=== PATIENT | female | born 1955 | race Caucasian/White ===

== ENCOUNTER → 2018-05-14 14:09 | Outpatient (CLI) | payer MEDICARE, OTHER, SELFPAY ==
--- NOTE | 2018-05-14 | DI.MRI.S_ITS ---
PROCEDURE: MR SHOULDER LT WO CON INDICATIONS: LEFT SHOULDER PAIN TECHNIQUE: Noncontrast oblique coronal T2 fast spin echo with fat saturation, oblique sagittal T1 spin echo and T2 fast spin echo with fat saturation, axial T1 spin echo and T2 fast spin echo with fat saturation through the shoulder. COMPARISON: None. FINDINGS: Image quality: Excellent. Rotator cuff: There is mild supraspinatus tendinopathy and bursal surface fraying. There is also low grade articular surface fraying image 10 series 5. No high-grade or full-thickness tear. Teres minor, infraspinatus, and subscapularis tendons appear intact throughout. No rotator cuff muscle atrophy on sagittal images. Bones and bursae: No bone marrow contusions or fractures. Moderate acromioclavicular joint degeneration. The acromion demonstrates conventional anatomy, without an os acromiale. Mild lateral downsloping appearance the acromion. There is trace subacromial-subdeltoid bursal fluid. Capsule and soft tissues: In the absence of intra-articular contrast, the labrum and glenohumeral ligaments appear intact. The long head of the biceps tendon demonstrates normal location and morphology. The rotator interval appears normal, without fibrosis. The coracohumeral ligament is normal in thickness. IMPRESSION: Mild supraspinatus tendinopathy with low-grade bursal and articular surface fraying however no high-grade or full-thickness tear. Lateral downsloping appearance of the acromion. Mild subacromial/subdeltoid bursitis. Dictated by: Dano Pennington M.D. on 05/14/2018 at 15:59 Approved by: Dano Pennington M.D. on 05/14/2018 at 16:10
== END ==
PROVIDERS: Family Provider Physician Assistant Medical; PCP Physician Assistant Medical; Visit Provider Physician Assistant Medical
DX: M25.512 Pain in left shoulder (principal); M75.52 Bursitis of left shoulder
CPT/HCPCS: 73221

== ENCOUNTER 2018-06-29 13:00 | Emergency (ER) | payer MEDICARE, OTHER, SELFPAY ==
--- NOTE | 2018-06-29 13:08 | ED.FALL ---
HPI - Fall <Nory Torre PA-C - Last Filed: 06/29/18 21:56> General Chief Complaint: Extremity Injury, Lower Stated Complaint: fall, left lwr leg/ankle injury Time Seen by Provider: 06/29/18 13:08 Source: patient and family Mode of arrival: ambulatory Limitations: no limitations History of Present Illness HPI Narrative: This 63-year-old female was pulling weeds when she slipped and fell backwards onto a stump. She states that she thinks her left leg twisted underneath her, took the initial impact with that, but also fell onto her upper back which she hit on the stump. She denies head contusion but her states that he did see her hit her head. She states that she knew what was happening, no LOC. She has not had headache, vision change, nausea or vomiting. She states that her neck is a little bit sore and feels sore where she scraped her upper back. She denies any weakness in the extremities. Denies any bowel or bladder changes. She states that her left foot feels a little bit numb or tingly but can't quite tell where. She denies any other paresthesia. She states that her main pain is in the left ankle. When she tried to walk on it she her a grinding, crunching sensation and felt a ?gush?, so has not put weight on it. 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 States she has some decreased ROM in her neck at baseline as well. Her only other complaint on systems review is dry mouth. Related Data Home Medications Medication Instructions Recorded Confirmed Liverite 1 tab PO DAILY 06/29/18 06/29/18 aspirin 81 mg PO DAILY 06/29/18 06/29/18 clobetasol 1 applic TOPICAL BID 06/29/18 06/29/18 diphenhydramine HCl [Allergy 25 mg PO DAILY 06/29/18 06/29/18 (diphenhydramine)] folic acid 1 mg PO DAILY 06/29/18 06/29/18 ibuprofen 800 mg PO BID 06/29/18 06/29/18 levothyroxine [Synthroid] 100 mcg PO DAILY 06/29/18 06/29/18 metformin [Glucophage XR] 500 mg PO DAILY 06/29/18 06/29/18 methotrexate sodium 20 mg PO TU 06/29/18 06/29/18 multivitamin with minerals 1 tab PO DAILY 06/29/18 06/29/18 omega-3 acid ethyl esters [Lovaza] 4 cap PO DAILY 06/29/18 06/29/18 pantoprazole [Protonix] 40 mg PO DAILY 06/29/18 06/29/18 rosuvastatin [Crestor] 20 mg PO QPM 06/29/18 06/29/18 vitamin E 400 unit PO DAILY 06/29/18 06/29/18 Allergies Allergy/AdvReac Type Severity Reaction Status Date / Time INGREDIENT: NKDA - NO KNOWN Allergy Unknown Uncoded 03/11/18 11:56 DRUG ALLERGIES Review of Systems <Nory oTrre PA-C - Last Filed: 06/29/18 21:56> Review of Systems All systems reviewed & are unremarkable except as noted in HPI and below Exam <Nory Torre PA-C - Last Filed: 06/29/18 21:56> Narrative Exam Narrative: GENERAL APPEARANCE: Patient sitting comfortably, in no distress. HEENT: PERRL, EOMI, normal oropharynx NECK: Supple LUNGS: Clear to auscultation bilaterally. HEART: Rate and rhythm regular without murmur, normal S1 and S2, no S3 or S4. ABDOMEN: Soft, NT, ND, + BS x 4 quadrants NEUROLOGIC: Alert and oriented, normal speech and coordination. MUSCULOSKELETAL: Mild tenderness over C 6-T3 levels and paraspinal musculature. Minimally reduced C-spine ROM in all jordan. Shoulder shrug strength 5/5 bilateral, resisted biceps and triceps 4/5 left, 5/5 right. Extruding Press Adjuster strength 5/5 bilaterally. Joint deformities noted in bilateral fingers and left wrist. Left ankle there is effusion and ecchymoses over the lateral malleolus, where she is tender to touch. No tenderness elsewhere over the ankle. Also tender over the left 2nd mid metatarsal. Achilles is intact by palpation. She is able to dorsi and plantarflex the toes. DERM: Superficial erythematous abrasion on the L. mid thoracic skin lateral to spine is mildly TTP Initial Vital Signs Initial Vital Signs: Vital Signs Temperature 98.5 F 06/29/18 13:13 Pulse Rate 77 06/29/18 13:13 Respiratory Rate 18 07/30/18 13:13 Blood Pressure 151/84 H 06/29/18 13:13 Pulse Oximetry 97 06/29/18 13:13 <DO Mireya Villalta Last Filed: 06/30/18 07:07> Initial Vital Signs Initial Vital Signs: Vital Signs Temperature 98.5 F 06/29/18 13:13 Pulse Rate 77 06/29/18 13:13 Respiratory Rate 18 06/29/18 13:13 Blood Pressure 151/84 H 06/29/18 13:13 Pulse Oximetry 97 06/29/18 13:13 Course <JONATHAN Gottlieb Last Filed: 06/29/18 21:56> Additional Information: Patient reported feeling stable in walking boot. Reviewed plan to place this with Dr. Samayoa who is in agreement given location of ankle fracture. Patient declined any pain medication stating ibuprofen and Tylenol work best for her which she has at home. Her house is well equipped for disability needs. CT scan noted to include upper Tsp even though not commented on in report. She reported reduced Csp ROM and L. UE ROM are at baseline. She agreed to return if any new or acutely worsening symptoms, otherwise will call Orthopedics to set up a follow-up appointment and wear the walking boot whenever weight-bearing in the interim Orders Ordered: ED Orders 06/29/18 13:26 XR ankle LT min 3V Stat XR foot LT min 3V Stat 06/29/18 13:30 CT cervical spine wo con Stat CT head/brain wo con Stat Vital Signs - 8 hr 06/29/18 14:37 Pulse Rate 72 Respiratory Rate 18 Blood Pressure [Right Arm] 134/94 H Pulse Oximetry 97 <DO Mireya Villalta Last Filed: 06/30/18 07:07> Orders Ordered: ED Orders 06/29/18 13:26 XR ankle LT min 3V Stat XR foot LT min 3V Stat 06/29/18 13:30 CT cervical spine wo con Stat CT head/brain wo con Stat Vital Signs - 8 hr 06/29/18 14:37 Pulse Rate 72 Respiratory Rate 18 Blood Pressure [Right Arm] 134/94 H Pulse Oximetry 97 MDM - Fall <JONATHAN Gottlieb Last Filed: 06/29/18 21:56> Imaging Data extremity: Radiologist's impression: [address] [address] XRay Report Signed Patient: Radha Snow MR#: [id number] : 1955 Acct:[id number] Age/Sex: 63 / F Date of Service: 06/29/18 Loc: ED Accession Number: [id number] Procedure: XR ankle LT min 3V Ordering Provider: Nory Torre P.A-C PROCEDURE: XR ANKLE LT MIN 3V INDICATIONS: fall, pain, effusion TECHNIQUE: 3 views of the ankle were acquired. COMPARISON: [facility], CR, XR FOOT LT MIN 3V, 06/29/2018, 13:13. FINDINGS: Bones: Minimally displaced lateral malleolar fracture, just below the level of the syndesmosis. Chronic plantar calcaneal spur Soft tissues: Overlying soft tissue swelling IMPRESSION: Minimally displaced lateral malleolar fracture. Associated soft tissue swelling Dictated by: Dano Pennington M.D. on 06/29/2018 at 12:52 Approved by: Dano Pennington M.D. on 06/29/2018 at 12:54 View Report History [address] [address] XRay Report Signed Patient: Radha Snow MR#: [id number] : 1955 Acct:[id number] Age/Sex: 63 / F Date of Service: 06/29/18 Loc: ED Accession Number: [id number] Procedure: XR foot LT min 3V Ordering Provider: Nory Torre P.A-C PROCEDURE: XR FOOT LT MIN 3V INDICATIONS: fall, 2nd MT pain TECHNIQUE: 3 views of the foot were acquired. COMPARISON: [facility], CR, XR ANKLE LT MIN 3V, 06/29/2018, 13:13. FINDINGS: Bones: Lateral malleolar fracture is better seen on comparison ankle radiographs dated same day. Elsewhere, no fractures or dislocations. No suspicious bony lesions. Incidental os navicular Soft tissues: No tibiotalar joint effusion. Achill Lateral malleolar fracture better seen on ankle radiographs dated same day. es tendon appears normal. IMPRESSION: Lateral malleolar fracture, better seen on the ankle radiographs dated same day. CT scan - head: Radiologist's impression: View Report History [place] [id number] CT Scan Report Signed Patient: Radha Snow MR#: [id number] : 1955 Acct:[id number] Age/Sex: 63 / F Date of Service: 06/29/18 Loc: ED Accession Number: [id number] Procedure: CT head/brain wo con Ordering Provider: Nory Torre P.A-C PROCEDURE: CT HEAD/BRAIN WO CON INDICATIONS: Fall, contusion. TECHNIQUE: Noncontrast 4.5 mm thick angled axial sections acquired from the foramen magnum to the vertex, with coronal and sagittal reformats. For radiation dose reduction, the following was used: automated exposure control, adjustment of mA and/or kV according to patient size. COMPARISON: None. FINDINGS: Image quality: Excellent. CSF spaces: Basal cisterns are patent. No extra-axial fluid collections. Ventricles are normal in size and shape. Brain: No midline shift. No intracranial masses or hemorrhage. Vuong-white matter interface is normal. Skull and face: Calvarium and visualized facial bones are intact, without suspicious lesions. Sinuses: Visualized sinuses and mastoids are clear. IMPRESSION: No acute intracranial abnormality. Dictated by: Sonny Mi M.D. on 06/29/2018 at 13:45 Approved by: Sonny Mi M.D. on 06/29/2018 at 13:52 C spine: Radiologist's impression: View Report History [place] [id number] CT Scan Report Signed Patient: Radha Snow MR#: [id number] : 1955 Acct:[id number] Age/Sex: 63 / F Date of Service: 06/29/18 Loc: ED Accession Number: [id number] Procedure: CT cervical spine wo con Ordering Provider: Nory Torre P.A-C PROCEDURE: CT CERVICAL SPINE WO CON INDICATIONS: Fall, now with upper thoracic pain. TECHNIQUE: Noncontrast 3 mm thick sections acquired from the skull base to the T4 level. Sagittal and coronal reformats were then constructed. For radiation dose reduction, the following was used: automated exposure control, adjustment of mA and/or kV according to patient size. COMPARISON: None. FINDINGS: Image quality: Excellent. Bones: No fractures or dislocations through T1. Visualized superior ribs are intact. There are multilevel degenerative changes of the cervical spine, worst about the dens at C1-C2, and also at C5-C6. Soft tissues: Prevertebral soft tissues are normal in thickness. No paravertebral hematomas. No apical pneumothoraces. IMPRESSION: No acute fracture or dislocation of the cervical spine through T1. Multilevel degenerative changes of the cervical spine. Dictated by: Sonny Mi M.D. on 06/29/2018 at 13:52 Approved by: Sonny Mi M.D. on 06/29/2018 at 14:00 Discharge Plan Departure Patient Disposition: Home, Self-Care Clinical Impression: Closed left malleolar fracture Discharge Date/Time: 06/29/18 15:00 Interventions: ED Discharge Assessment Last Done: 06/29/18 14:59 Instructions: DI for Ankle Fracture Activity Restrictions/Additional Instructions: Your x-rays show that you have a fracture on the outside of your ankle where you are swollen. As we talked about, it is important to keep weight off of this and keep immobilized to keep it from getting pushed out of place (that is very minimal now). Please wear the walking boot whenever you are putting weight on the left foot or ankle, and you can also use your walker if helpful. Please call [facility] and let them know you have a fracture and were seen in the emergency department and need to set up follow-up. There were no acute findings found on the scans of your neck or head today, nor on your foot x-ray. You should return immediately if you have any new or acutely worsening symptoms, otherwise please take your pain medicines that you have at home as needed. Prescriptions: No Action ibuprofen 800 mg Tablet 800 mg PO BID RF: 0 aspirin 81 mg Tablet,Delayed Release (Dr/Ec) 81 mg PO DAILY RF: 0 levothyroxine [Synthroid] 100 mcg Tablet 100 mcg PO DAILY RF: 0 pantoprazole [Protonix] 40 mg Tablet,Delayed Release (Dr/Ec) 40 mg PO DAILY RF: 0 diphenhydramine HCl [Allergy (diphenhydramine)] 25 mg Capsule 25 mg PO DAILY RF: 0 methotrexate sodium 5 mg Tablet 20 mg PO TU RF: 0 folic acid 1 mg Tablet 1 mg PO DAILY RF: 0 multivitamin with minerals Tablet 1 tab PO DAILY RF: 0 clobetasol 0.05 % Solution 1 applic TOPICAL BID RF: 0 metformin [Glucophage XR] 500 mg Tablet Extended Release 24 Hr 500 mg PO DAILY RF: 0 vitamin E 400 unit Capsule 400 unit PO DAILY RF: 0 rosuvastatin [Crestor] 20 mg Tablet 20 mg PO QPM RF: 0 omega-3 acid ethyl esters [Lovaza] 1 gram Capsule 4 cap PO DAILY RF: 0 Liverite tablet 1 tab PO DAILY RF: 0 Referrals: [facility] [Provider Group] Kristi Hoff PA-C [Non-Staff] - <Dk Samayoa DO - Last Filed: 06/30/18 07:07> Cosign ED Attending Bonnie Attestation: I was available for consultation during this patient's emergency department encounter
[2018-06-29 13:13] VITALS: BP 151/84; PULSE 77; RESP 18; TEMP 36.9; O2SAT 97; BMI 28.2
--- NOTE | 2018-06-29 13:26 | DI.RAD.S_ITS ---
PROCEDURE: XR ANKLE LT MIN 3V INDICATIONS: fall, pain, effusion TECHNIQUE: 3 views of the ankle were acquired. COMPARISON: [facility], , XR FOOT LT MIN 3V, 06/29/2018, 13:13. FINDINGS: Bones: Minimally displaced lateral malleolar fracture, just below the level of the syndesmosis. Chronic plantar calcaneal spur Soft tissues: Overlying soft tissue swelling IMPRESSION: Minimally displaced lateral malleolar fracture. Associated soft tissue swelling Dictated by: Dano Pennington M.D. on 06/29/2018 at 12:52 Approved by: Dano Pennington M.D. on 06/29/2018 at 12:54
--- NOTE | 2018-06-29 13:26 | DI.RAD.S_ITS ---
PROCEDURE: XR FOOT LT MIN 3V INDICATIONS: fall, 2nd MT pain TECHNIQUE: 3 views of the foot were acquired. COMPARISON: [facility], CR, XR ANKLE LT MIN 3V, 06/29/2018, 13:13. FINDINGS: Bones: Lateral malleolar fracture is better seen on comparison ankle radiographs dated same day. Elsewhere, no fractures or dislocations. No suspicious bony lesions. Incidental os navicular Soft tissues: No tibiotalar joint effusion. Achill Lateral malleolar fracture better seen on ankle radiographs dated same day. es tendon appears normal. IMPRESSION: Lateral malleolar fracture, better seen on the ankle radiographs dated same day. Dictated by: Dano Pennington M.D. on 06/29/2018 at 12:56 Approved by: Dano Pennington M.D. on 06/29/2018 at 12:58
--- NOTE | 2018-06-29 13:30 | DI.CT.S_ITS ---
PROCEDURE: CT CERVICAL SPINE WO CON INDICATIONS: Fall, now with upper thoracic pain. TECHNIQUE: Noncontrast 3 mm thick sections acquired from the skull base to the T4 level. Sagittal and coronal reformats were then constructed. For radiation dose reduction, the following was used: automated exposure control, adjustment of mA and/or kV according to patient size. COMPARISON: None. FINDINGS: Image quality: Excellent. Bones: No fractures or dislocations through T1. Visualized superior ribs are intact. There are multilevel degenerative changes of the cervical spine, worst about the dens at C1-C2, and also at C5-C6. Soft tissues: Prevertebral soft tissues are normal in thickness. No paravertebral hematomas. No apical pneumothoraces. IMPRESSION: No acute fracture or dislocation of the cervical spine through T1. Multilevel degenerative changes of the cervical spine. Dictated by: Sonny Mi M.D. on 06/29/2018 at 13:52 Approved by: Sonny Mi M.D. on 06/29/2018 at 14:00
--- NOTE | 2018-06-29 13:30 | DI.CT.S_ITS ---
PROCEDURE: CT HEAD/BRAIN WO CON INDICATIONS: Fall, contusion. TECHNIQUE: Noncontrast 4.5 mm thick angled axial sections acquired from the foramen magnum to the vertex, with coronal and sagittal reformats. For radiation dose reduction, the following was used: automated exposure control, adjustment of mA and/or kV according to patient size. COMPARISON: None. FINDINGS: Image quality: Excellent. CSF spaces: Basal cisterns are patent. No extra-axial fluid collections. Ventricles are normal in size and shape. Brain: No midline shift. No intracranial masses or hemorrhage. Vuong-white matter interface is normal. Skull and face: Calvarium and visualized facial bones are intact, without suspicious lesions. Sinuses: Visualized sinuses and mastoids are clear. IMPRESSION: No acute intracranial abnormality. Dictated by: Sonny Mi M.D. on 06/29/2018 at 13:45 Approved by: Sonny Mi M.D. on 06/29/2018 at 13:52
--- NOTE | 2018-06-29 13:30 | PC.NURSE ---
Per provider, no C-collar needed.
[2018-06-29 14:37] VITALS: BP 134/94; PULSE 72; RESP 18; O2SAT 97
== END 2018-06-29 15:00 | disposition home or self-care (01) ==
PROVIDERS: Emergency Provider Internal Medicine
DX: S82.892A Other fracture of left lower leg, initial encounter for closed fracture (principal); W01.0XXA Fall on same level from slipping, tripping and stumbling without subsequent striking against object, initial encounter
CPT/HCPCS: 29580; 70450; 72125; 73610; 73630; 99283; 99284

== ENCOUNTER → 2021-09-21 10:55 | Outpatient (CLI) | payer MEDICARE, OTHER, SELFPAY ==
[2021-09-21 17:51] LABS: COVID-19 CEPHEID PCR (VTM/NP) Negative (Negative)
== END ==
PROVIDERS: Visit Provider Nurse Practitioner
DX: Z20.822 Contact with and (suspected) exposure to COVID-19 (principal)
CPT/HCPCS: C9803; U0003

== ENCOUNTER → 2021-09-24 08:34 | Outpatient (CLI) | payer MEDICARE, OTHER, SELFPAY ==
--- NOTE | 2021-09-24 19:19 | DI.NM.S_ITS ---
DATE OF SERVICE: 09/24/2021 PROCEDURE PERFORMED: Pharmacologic vasodilator stress and rest myocardial perfusion imaging with gating to assess ejection fraction and regional wall motion. ORDERING PROVIDER: Kristi Hoff PA-C. INDICATIONS: The patient is a 66-year-old diabetic female with chest and back pain. CARDIAC STRESS: Per protocol, 0.4 mg of regadenoson was infused with a normal hemodynamic response. She developed flushing, but no chest discomfort. Her resting ECG shows sinus rhythm with mild, nonspecific T-wave abnormalities in the anterolateral leads but normal ST segments. With stress, there were no significant ST-segment shifts. There were no arrhythmias. Per protocol, 26.4 millicuries of technetium-99m Myoview was injected and she was imaged 15 minutes later using a gated SPECT acquisition protocol. Earlier in the day while at rest, she had been injected with 13.2 millicuries of technetium- 99m Myoview and imaged 25 minutes later, again using a gated SPECT acquisition protocol. FINDINGS: 1. Raw data: There is fairly good myocardial tracer uptake. The lung/heart ratio is normal at 0.25 with a normal TID ratio of 0.90. 2. Quantitated gated SPECT: Post-stress ejection fraction is estimated at 86%, likely an overestimate because of relatively small left ventricular volumes. There are no focal wall motion abnormalities. Resting ejection ejection fraction is 77% with an end-diastolic volume is 64 mL. 3. Myocardial perfusion imaging: Post-stress supine images show a fairly normal myocardial perfusion pattern, supported by normal, homogeneous perfusion imaging in the prone position. The resting images show no concerning areas of improvement. IMPRESSION: 1. Normal myocardial perfusion study. 2. No evidence of myocardial ischemia or previous myocardial infarction. 3. High-normal left ventricular systolic function without any focal wall motion abnormality. 4. No angina or ECG evidence of ischemia with pharmacologic vasodilator stress. SnowKimberlee jja - JANNIE/vargas/andrei doc#: [id number]/job#: [id number] dd: 09/24/2021 16:44:00 dt: 09/24/2021 19:06:00 DICTATING MD/COPIES TO: Fuad Real MD; LINWOOD Gipson COPIES MNE: STERO;
== END ==
PROVIDERS: Referring Provider Physician Assistant Medical; Visit Provider Physician Assistant Medical
DX: R07.9 Chest pain, unspecified (principal); M54.9 Dorsalgia, unspecified; E11.9 Type 2 diabetes mellitus without complications
CPT/HCPCS: 78452; 93017; A9502; J2785

== ENCOUNTER → 2021-11-21 09:42 | Outpatient (CLI) | payer MEDICARE, OTHER, SELFPAY ==
--- NOTE | 2021-11-21 09:46 | DI.MG.S_ITS ---
BILATERAL DIGITAL SCREENING MAMMOGRAM 3D/2D WITH CAD: 11/21/2021 CLINICAL: Routine screening. Baseline exam. No prior exams were available for comparison. There are scattered fibroglandular elements in both breasts. Current study was also evaluated with a Computer Aided Detection (CAD) system. No significant masses, calcifications, or other findings are seen in either breast. IMPRESSION: NEGATIVE There is no mammographic evidence of malignancy. A 1 year screening mammogram is recommended. This exam was interpreted at Station ID: [id number]. NOTE: For mammograms, a report in lay terms will be sent to the patient. Approximately 15% of breast malignancies will not be visualized mammographically. In the management of a palpable breast mass, a negative mammogram must not discourage biopsy of a clinically suspicious lesion. Electronically Signed By: Mayank Pruitt M.D., jr/zaida:11/21/2021 12:40:56 letter sent: Normal Exam ACR BI-RADS Category 1: Negative [id number]
== END ==
PROVIDERS: PCP Physician Assistant Medical; Referring Provider Physician Assistant Medical; Visit Provider Physician Assistant Medical
DX: Z12.31 Encounter for screening mammogram for malignant neoplasm of breast (principal)
CPT/HCPCS: 77063; 77067